=== PATIENT | female | born 1940 | race Native Hawaiian/Other Pacific Islander ===

== ENCOUNTER 2016-08-18 10:44 | Inpatient (IN) | payer MEDICARE ==
[2016-08-18 10:55] VITALS: BMI 20.9
--- NOTE | 2016-08-18 11:05 | ED PDOC ---
Arrival/HPI - General Chief Complaint: Abdominal Pain Time Seen by Provider: 08/18/16 11:04 Historian: Patient - History of Present Illness Narrative History of Present Illness (Text): 08/18/16 11:12 Christina Constantino is a 75 year old female who presents to the emergency department complaining of lower abdominal pain associated with decreased appetite since yesterday. Patient was evaluated by PMD, and was advised to present to ed to rule out appendicitis. Denies any nausea, vomiting or diarrhea. Denies fever, chills, headache, dizziness, chest pain, SOB, urinary symptoms, or any other complaints at this time. PMD: Dr. Black Time/Duration: Other (yesterday ) Symptom Onset: Gradual Symptom Course: Unchanged Severity Level: Mild Activities at Onset: Light Context: Home Past Medical History - Provider Review Nursing Documentation Reviewed: Yes - Cardiac Hx Cardiac Disorders: Yes Hx Pacemaker: No - Pulmonary Hx Respiratory Disorders: No - Neurological Hx Neurological Disorder: No Hx Paralysis: No - HEENT Hx HEENT Disorder: No - Renal Hx Renal Disorder: No - Endocrine/Metabolic Hx Endocrine Disorders: No - Hematological/Oncological Hx Blood Disorders: No Hx Blood Transfusions: No Hx Blood Transfusion Reaction: No - Integumentary Hx Dermatological Disorder: No - Musculoskeletal/Rheumatological Hx Musculoskeletal Disorders: Yes - Gastrointestinal Hx Gastrointestinal Disorders: No - Genitourinary/Gynecological Hx Genitourinary Disorders: No - Psychiatric Hx Psychophysiologic Disorder: No Hx Emotional Abuse: No Hx Physical Abuse: No Hx Substance Use: No - Anesthesia Hx Anesthesia Reactions: No Hx Malignant Hyperthermia: No - Suicidal Assessment Feels Threatened In Home Enviroment: No Family/Social History - Physician Review Nursing Documentation Reviewed: Yes Family/Social History: No Known Family HX Smoking Status: Never Smoked Hx Alcohol Use: No Hx Substance Use: No Allergies/Home Meds Allergies/Adverse Reactions: Allergies No Known Allergies Allergy (Verified 08/18/16 10:56) Home Medications: Home Meds Medication Instructions Recorded Confirmed Simvastatin [Simvastatin] 20 mg PO DAILY 08/18/16 08/18/16 Review of Systems - Physician Review All systems were reviewed & negative as marked: Yes - Review of Systems Constitutional: Normal. absent: Fatigue, Fevers Respiratory: Normal. absent: SOB, Cough Cardiovascular: Normal. absent: Chest Pain Gastrointestinal: Abdominal Pain (lower abdominal pain ). absent: Diarrhea, Nausea, Vomiting Genitourinary Female: Normal. absent: Dysuria Neurological: Normal. absent: Headache, Dizziness Psychiatric: Normal Physical Exam - Physical Exam Narrative Physical Exam (Text): Constitutional: No acute distress. Head: Normocephalic. Atraumatic. Eyes: PERRL. ENT: Moist mucous membranes. Neck: Supple. Cardiovascular: Regular rate. Chest: No tenderness. Respiratory: Clear to auscultation bilaterally. GI: Soft. Nondistended. Diffuse abdominal tenderness including the RLQ Back: No CVA tenderness. Musculoskeletal: No tenderness or swelling of extremities. Skin: No rash. Neurologic: Alert, no focal deficit. Vital Signs Reviewed: Yes Vital Signs Temp Pulse Resp BP Pulse Ox 08/18/16 10:56 98.6 F 79 16 148/76 99 Temperature: Afebrile Blood Pressure: Normal Pulse: Regular Respiratory Rate: Normal Appearance: Positive for: Well-Appearing, Non-Toxic, Comfortable Pain Distress: None Mental Status: Positive for: Alert and Oriented X 3 Medical Decision Making ED Course and Treatment: 08/18/16 11:24 Impression: A 75 year old female sent in by PMD to r/o appendicitis. Differential Diagnosis included but are not limited to: abdominal pain: r/o appendicitis. Plan: -- CT abdomen pelvis -- Labs -- Urinalysis -- Reassess and disposition Progress Notes: 08/18/16 11:24 Offered pain medication, but patient denies. Will place patient on EDObs for abdominal pain. - Lab Interpretations Lab Results: 08/18/16 11:20 08/18/16 11:20 Lab Results 08/18/16 11:20: WBC 13.9 H D, RBC 4.19, Hgb 12.8, Hct 37.9, MCV 90.5, MCH 30.5, MCHC 33.8, RDW 12.8, Plt Count 257, MPV 9.8, Gran % 91.0 H, Lymph % (Auto) 7.3 L , Zavala % (Auto) 1.6, Eos % (Auto) 0.0 L, Baso % (Auto) 0.1, Gran # 12.67 H, Lymph # 1.0 L, Zavala # 0.2, Eos # 0.0, Baso # 0.01, Sodium 135, Potassium 4.1, Chloride 98, Carbon Dioxide 27, Anion Gap 14, BUN 12, Creatinine 0.6, Est GFR ( Amer) > 60, Est GFR (Non-Af Amer) > 60, Random Glucose 148 H, Calcium 9.1, Total Bilirubin 0.8, AST 30, ALT 19, Alkaline Phosphatase 64, Total Protein 8.1, Albumin 4.4, Globulin 3.7, Albumin/Globulin Ratio 1.2, Lipase 37 - RAD Interpretation Radiology Orders: 08/18/16 11:07 ABD PELVIS PO & IV CONTRAST [CT] Stat - Medication Orders Current Medication Orders: Acetaminophen (Tylenol 325mg Tab) 650 mg PO Q6H PRN PRN Reason: Fever >100.4 F Hydromorphone HCl (Dilaudid) 0.5 mg IVP Q4H PRN PRN Reason: Pain, moderate (4-7) Sodium Chloride (Sodium Chloride 0.9%) 1,000 mls @ 100 mls/hr IV .Q10H GLO Ceftriaxone Sodium (Rocephin 1 Gram Ivpb) 100 mls @ 100 mls/hr IVPB DAILY GLO PRN Reason: Protocol Metronidazole (Flagyl) 100 mls @ 100 mls/hr IVPB Q8 GLO PRN Reason: Protocol Ondansetron HCl (Zofran Inj) 4 mg IVP Q4 PRN PRN Reason: Nausea/Vomiting Discontinued Medications Piperacillin Sod/Tazobactam Sod (Zosyn 4.5 Gm In Ns 100ml) 100 mls @ 200 mls/ hr IVPB STAT STA PRN Reason: Protocol Stop: 08/18/16 14:18 Last Admin: 08/18/16 16:42 Dose: 200 MLS/HR eMAR Start Stop Document 08/18/16 16:42 EQ (Rec: 08/18/16 16:42 EQ [facility] [id number][place] Intravenous Solution Start Date 08/18/16 Start Time 16:42 Iohexol (Omnipaque 240 (50 Ml)) Confirm Administered Dose 50 ml .ROUTE .STK-MED ONE Stop: 08/18/16 11:13 Iohexol (Omnipaque 350 100 Ml) Confirm Administered Dose 350 mg .ROUTE .STK-MED ONE Stop: 08/18/16 11:55 Ondansetron HCl (Zofran Inj) 4 mg IVP STAT STA Stop: 08/18/16 11:42 Last Admin: 08/18/16 11:42 Dose: 4 MG IVP Administration Document 08/18/16 11:42 EQ (Rec: 08/18/16 11:56 EQ [facility] [id number]) Charges for Administration # of IVP Administrations 1 Ondansetron HCl (Zofran Inj) Confirm Administered Dose 4 mg .ROUTE .STK-MED ONE Stop: 08/18/16 11:44 Last Admin: 08/18/16 16:37 Dose: ED OBSERVATION Date of observation admission: 08/18/16 Time of observation admission: 11:26 - Observation admission statement Patient is being placed in observation because:: abdominal pain - Goals of Observation Goals of observation are:: Pending labs, CT scan, and reevaluation. - Progress Note Progress Note: 08/18/16 13:57 PROCEDURE: CT Abdomen and Pelvis with contrast FINDINGS: LOWER THORAX: Unremarkable. LIVER: Diffuse fatty liver infiltration. No gross lesion or ductal dilatation. GALLBLADDER AND BILE DUCTS: Unremarkable. PANCREAS: Unremarkable. No gross lesion or ductal dilatation. SPLEEN: Unremarkable. ADRENALS: Unremarkable. No mass. KIDNEYS AND URETERS: No hydronephrosis a few small bilateral hypodense renal lesions too small to accurately characterize are noted. A left renal midpole exophytic 2.3 cm evidence benign renal cyst is suggested VASCULATURE: Atherosclerotic vascular calcifications No aortic aneurysm. Para BOWEL: Small-bowel mild ileus APPENDIX: Dilated appendix with minimal contrast or appendicolith within it. No gross rupture or periappendiceal abscess suggested. Findings suggest acute appendicitis PERITONEUM: Unremarkable. No free fluid. No free air. LYMPH NODES: Unremarkable. No enlarged lymph nodes. BLADDER: Unremarkable. REPRODUCTIVE: The uterus is slightly tip toward the right. There is a minimal prominence to the right ovary -even at this stage a physiologic right follicular cyst is possible. BONES: No acute fracture. OTHER FINDINGS: None. IMPRESSION: Findings consistent with an acute appendicitis. No kianna rupture or periappendiceal abscess Case discussed with who accepts patient under her service for appendicitis. Will start patient on Zosyn. Called Dr. Sanchez for surgical consult, who accepts for consult. chaplain resident notified. - Scribe Statement The provider has reviewed the documentation as recorded by the Dimitrios Luna Provider Attestation: All medical record entries made by the Scribe were at my direction and personally dictated by me. I have reviewed the chart and agree that the record accurately reflects my personal performance of the history, physical exam, medical decision making, and the department course for this patient. I have also personally directed, reviewed, and agree with the discharge instructions and disposition. Disposition/Present on Arrival - Present on Arrival Any Indicators Present on Arrival: No History of DVT/PE: No History of Uncontrolled Diabetes: No Urinary Catheter: No History of Decub. Ulcer: No History Surgical Site Infection Following: None - Disposition Have Diagnosis and Disposition been Completed?: Yes Diagnosis: Acute appendicitis Disposition: HOSPITALIZED Disposition Time: 15:16 Patient Plan: Admission Condition: FAIR
[2016-08-18] MEDS ORDERED: Iohexol 240 (50 ml) ONE (11:12)
[2016-08-18 11:31] LABS: BASO # 0.01 [, K/mm3] (0.0-2.0); BASO % 0.1 % (0.0-3.0); GRAN # 12.67 (1.4-6.5); HEMATOCRIT 37.9 % (36.0-48.0); LYMPH % 7.3 % (22.0-35.0); MEAN CELL VOLUME 90.5 fL (80.0-105.0); MEAN CORPUSCULAR HEMOGLOBIN 30.5 pg (25.0-35.0); MEAN CORPUSCULAR HGB CONC 33.8 g/dl (31.0-37.0); MEAN PLATELET VOLUME 9.8 fl (7.0-11.0); MONO # 0.2 (0.1-0.6); MONO % 1.6 % (1.0-6.0); PLATELET COUNT 257 [, 10^3/uL] (120.0-450.0); RED CELL DISTRIBUTION WIDTH 12.8 % (11.5-14.5); WHITE BLOOD COUNT 13.9 [, 10^3/ul] (4.5-11.0)
[2016-08-18 11:38] LABS: ADD MANUAL DIFF? NO
[2016-08-18 11:40] LABS: ALB/GLOB RATIO 1.2 (1.1-1.8); ALKALINE PHOSPHATASE 64 U/L (38-133); ALT/SGPT 19 U/L (7-56); AST/SGOT 30 U/L (15-39); BILIRUBIN,TOTAL 0.8 mg/dL (0.2-1.3); BLOOD UREA NITROGEN 12 mg/dL (7-21); CALCIUM 9.1 mg/dL (8.4-10.5); CARBON DIOXIDE 27 mmol/L (21-33); CHLORIDE 98 mmol/L (98-107); GFR AFRICAN-AMERICAN > 60; GLUCOSE,RANDOM 148 mg/dL (70-110); LIPASE 37 U/L (23-300); POTASSIUM 4.1 mmol/L (3.6-5.0); SODIUM 135 mmol/L (132-148); TOTAL PROTEIN 8.1 g/dL (5.8-8.3)
[2016-08-18] MEDS ORDERED: Iohexol 350 MG/100 ML VIAL ONE (11:54)
--- NOTE | 2016-08-18 13:47 | CT ---
PROCEDURE: CT Abdomen and Pelvis with contrast HISTORY: abd pain, r/o appendicitis COMPARISON: None. TECHNIQUE: Contrast dose: Omnipaque 240 (4 cups) and Omnipaque 351 100 mL Radiation dose: Total exam DLP = 208 mGy-cm. FINDINGS: LOWER THORAX: Unremarkable. LIVER: Diffuse fatty liver infiltration. No gross lesion or ductal dilatation. GALLBLADDER AND BILE DUCTS: Unremarkable. PANCREAS: Unremarkable. No gross lesion or ductal dilatation. SPLEEN: Unremarkable. ADRENALS: Unremarkable. No mass. KIDNEYS AND URETERS: No hydronephrosis a few small bilateral hypodense renal lesions too small to accurately characterize are noted. A left renal midpole exophytic 2.3 cm evidence benign renal cyst is suggested VASCULATURE: Atherosclerotic vascular calcifications No aortic aneurysm. Para BOWEL: Small-bowel mild ileus APPENDIX: Dilated appendix with minimal contrast or appendicolith within it. No gross rupture or periappendiceal abscess suggested. Findings suggest acute appendicitis PERITONEUM: Unremarkable. No free fluid. No free air. LYMPH NODES: Unremarkable. No enlarged lymph nodes. BLADDER: Unremarkable. REPRODUCTIVE: The uterus is slightly tip toward the right. There is a minimal prominence to the right ovary -even at this stage a physiologic right follicular cyst is possible. BONES: No acute fracture. OTHER FINDINGS: None. IMPRESSION: Findings consistent with an acute appendicitis. No kianna rupture or periappendiceal abscess
[2016-08-18] MEDS ORDERED: Piperacill/Tazo 4.5gm in NS 100 ML IVPB STA (13:49)
[2016-08-18 16:00] LABS: PH,URINE 7.5 (4.7-8.0); URINE BILIRUBIN NEGATIVE (NEGATIVE); URINE BLOOD NEGATIVE (NEGATIVE); URINE GLUCOSE (UA) NEGATIVE (NEGATIVE); URINE KETONE NEGATIVE (NEGATIVE); URINE LEUKOCYTE ESTERASE NEGATIVE Leu/uL (NEGATIVE); URINE PROTEIN NEGATIVE mg/dL (<30 mg/dL); URINE UROBILINOGEN 0.2 E.U./dL (<1 E.U./dL)
[2016-08-18 16:01] LABS: URINE APPEARANCE CLEAR (CLEAR); URINE COLOR YELLOW (YELLOW)
--- NOTE | 2016-08-18 16:06 | CP.PCM.CON ---
History of Present Illness - History of Present Illness History of Present Illness: Surgery: Dr. Vallecillo CC: Abd pain HPI: 75F w. pmh of hypercholesterolemia presents w. abd pain which started yesterday evening. Pain started in the umbilical area and was constant throughout the night. Pain was described as stabbing. Pain gradually moved to RLQ. Pt went to PMD today and was advised to go to ED to R/O appendicitis. Pt describes the pain as stabbing. She has decreased appetite and N/V which started today. She denies diarrhea. She denies F/C. CT done in ED showed dilated appendix consistent w. early acute appendicitis. Pt has no other complaints. No STEVENS/blurred vision, no CP/palpitations, no SOB/cough, no hematuria /dysuria, no weakness/fatigue. PMH: Hypercholesterolemia PSH: bunyon Meds: Simvastatin NKDA Social: No ETOH/tobacco/drugs Fhx: non-contributory Review of Systems - Review of Systems All systems: reviewed and no additional remarkable complaints except (HPI) Past Patient History - Past Social History Smoking Status: Never Smoked - CARDIAC Hx Cardiac Disorders: Yes Hx Pacemaker: No - PULMONARY Hx Respiratory Disorders: No - NEUROLOGICAL Hx Neurological Disorder: No Hx Paralysis: No - HEENT Hx HEENT Problems: No - RENAL Hx Chronic Kidney Disease: No - ENDOCRINE/METABOLIC Hx Endocrine Disorders: No - HEMATOLOGICAL/ONCOLOGICAL Hx Blood Disorders: No Hx Blood Transfusions: No Hx Blood Transfusion Reaction: No - INTEGUMENTARY Hx Dermatological Problems: No - MUSCULOSKELETAL/RHEUMATOLOGICAL Hx Musculoskeletal Disorders: Yes - GASTROINTESTINAL Hx Gastrointestinal Disorders: No - GENITOURINARY/GYNECOLOGICAL Hx Genitourinary Disorders: No - PSYCHIATRIC Hx Psychophysiologic Disorder: No Hx Emotional Abuse: No Hx Physical Abuse: No Hx Substance Use: No - SURGICAL HISTORY Hx Surgeries: Yes (foot surgery) - ANESTHESIA Hx Anesthesia Reactions: No Hx Malignant Hyperthermia: No Meds Allergies/Adverse Reactions: Allergies Allergy/AdvReac Type Severity Reaction Status Date / Time No Known Allergies Allergy Verified 08/18/16 10:56 Physical Exam - Constitutional Appears: Non-toxic, No Acute Distress - Head Exam Head Exam: ATRAUMATIC, NORMOCEPHALIC - Eye Exam Eye Exam: EOMI. absent: Scleral icterus - ENT Exam ENT Exam: Mucous Membranes Moist - Neck Exam Neck exam: Positive for: Full Rom - Respiratory Exam Respiratory Exam: NORMAL BREATHING PATTERN. absent: Accessory Muscle Use, Rales - GI/Abdominal Exam GI & Abdominal Exam: Soft, Tenderness (RLQ). absent: Distended, Firm, Guarding , Rebound, Rigid Additional comments: +obturator, no psoas - Extremities Exam Extremities exam: Negative for: calf tenderness, pedal pulses present - Back Exam Back exam: absent: CVA tenderness (L), CVA tenderness (R) - Neurological Exam Neurological exam: Alert, Oriented x3 - Psychiatric Exam Psychiatric exam: Normal Affect, Normal Mood Results - Vital Signs Recent Vital Signs: Last Vital Signs Temp 98.6 F 08/18/16 10:56 Pulse 79 08/18/16 10:56 Resp 16 08/18/16 10:56 BP 148/76 08/18/16 10:56 Pulse Ox 99 08/18/16 10:56 - Labs Result Diagrams: 08/18/16 11:20 08/18/16 11:20 - Imaging and Cardiology CT scan - abdomen Status: Image reviewed by me, Report reviewed by me Assessment & Plan - Assessment and Plan (Free Text) Assessment: 75F w. appendicitis -will plan for OR tonight -NPO -IVF -pain meds -abx -zofran -pre-op coags, ekg, CXR -d/w attending Zemaitis PGY2
[2016-08-18] MEDS ORDERED: Sodium Chloride 0.9% 1,000 ML IV SCH (16:45)
[2016-08-18] MEDS ORDERED: HYDROmorphone 0.5 mg/0.5 ml ISec IVP PRN (16:54)
[2016-08-18 17:18] LABS: INR 0.95 (0.93-1.08)
[2016-08-18] MEDS ORDERED: Bupivacaine 0.5% Inj(30mL) ONE (17:50)
[2016-08-18] MEDS ORDERED: Propofol 10 mg/ml Inj (20 ML) ONE ×2 (18:22→18:48)
[2016-08-18] MEDS ORDERED: Morphine 2 mg/ml ISec IVP PRN (18:24)
[2016-08-18] MEDS ORDERED: Lactated Ringer's 1,000 ML IV SCH ×2 (18:30→20:00)
[2016-08-18] MEDS ORDERED: Succinylcholine 200 mg/10 ml Inj IV ONE (18:47)
[2016-08-18] MEDS ORDERED: Influenza Vaccine 45 MCG/0.5 ml IM ONE (18:48)
[2016-08-18] MEDS ORDERED: Neostigmine Methylsulfate 3mg/3ml Syringe IV ONE (18:50)
[2016-08-18] MEDS ORDERED: Desflurane Inhalation Anesthetic Liq (240 ml) ONE (18:59)
--- NOTE | 2016-08-18 19:29 | CARD ---
APPROVED REPORT EKG Measurement Heart [id number] <Conclusion> Normal sinus rhythm ST & T wave abnormality, consider anterolateral ischemia Prolonged QT Abnormal ECG
--- NOTE | 2016-08-18 19:47 | PCM.SURG1 ---
Surgeon's Initial Post Op Note - Surgeon's Notes Surgeon: Dr. Vallecillo Damage Appraiser: Savanna Angel PGY1 Type of Anesthesia: General Endo Pre-Operative Diagnosis: Acute appendicitis Operative Findings: appendicitis Post-Operative Diagnosis: Acute appendicitis Operation Performed: Lapraroscopic appendectomy Specimen/Specimens Removed: Appendix Estimated Blood Loss: EBL {In ML}: 5 Blood Products Given: N/A Drains Used: No Drains Post-Op Condition: Good Date of Surgery/Procedure: 08/18/16 Time of Surgery/Procedure: 19:47
[2016-08-18] MEDS ORDERED: Oxycodone/Acetaminophen 5/325 mg Tab PO PRN (19:50)
[2016-08-18] MEDS: metroNIDAZOLE IV 500 mg/100 ml 100 ML IVPB SCH (21:29)
--- NOTE | 2016-08-18 22:10 | HP ---
CHIEF COMPLAINT: Right abdominal pain since yesterday. HISTORY OF PRESENT ILLNESS: A 75-year-old female with a history of hyperlipidemia who presented with complaint of generalized pain, but mostly localized in the right lower quadrant of the abdomen. The patient had bloating but denies any nausea, vomiting, diarrhea. She denied any fever at home. She was running a low-grade fever in the Emergency Room. PAST MEDICAL HISTORY: She denies any hypertension, coronary artery disease. The patient has history of hyperlipidemia and she is taking currently simvastatin. PAST SURGICAL HISTORY: Bunion surgery with local anesthesia a few years ago. ALLERGIES: No known allergies. CURRENT MEDICATIONS: Simvastatin 20 mg daily. FAMILY HISTORY: Noncontributory. SOCIAL HISTORY: The patient denies any smoking, alcohol or drug use. The patient is retired. She l elan with her . The patient is independent of activities of daily living. REVIEW OF SYSTEMS: The patient complains of low grade fever for 1 day. She complains of loss of faviola etite for 1 day. She denies any weight loss. The patient denies any sore throat, nasal congestion, dysphagia. The patient denies any cough, shortness of breath. The patient denies any chest pain, he art palpitation or shortness of breath. The patient complains of right lower quadrant abdominal pain . She denies any nausea, vomiting, melena, hematemesis, diarrhea. The patient denies any dysuria, h ematuria, flank pain. The patient denies any joint pains or low back pain. The patient denies any h eadache, blurry vision or any sensory or motor deficit, tremor. The patient denies any psychiatric s ymptoms. PHYSICAL EXAMINATION: VITAL SIGNS: Stable. Temperature in Emergency Room was 98.6, pulse 79, blood pressure 148/76, respi ratory rate 16, oxygen saturation 99% on room air. GENERAL: She is comfortable in bed, alert, awake, oriented. HEENT: Head is normocephalic, atraumatic. Eyes: Pupils reactive to light. No jaundice. Oral muco sa is dry. Tongue is coated. NECK: Supple. No neck masses. No JVD. LUNGS: Clear to auscultation. HEART: Regular rhythm and rate. ABDOMEN: Soft, but tenderness in the right lower quadrant with no rebound, with some muscle guarding in that area. Bowel sounds are positive. EXTREMITIES: With no edema. DIAGNOSTIC TESTS: Significant for elevated WBC 13.9, hemoglobin 12.8, hematocrit 37.9 and platelet c ount 257. Chemistry was normal. Random glucose 148. Her BUN was 12, creatinine 0.6. Urinalysis wa s normal. Chest x-ray was negative for any infiltration. CT of the abdomen was significant for diff use fatty infiltration and a dilated appendix suggestive of an acute appendicitis. EKG showed normal sinus rhythm, some ST abnormalities in V3-V5. ASSESSMENT: 1. A 75-year-old female with new onset of right lower quadrant abdominal pain. Positive CT scan for acute appendicitis. 2. Normal EKG. PLAN OF TREATMENT: The patient was evaluated by surgeon. The patient is planned for a laparoscopic appendectomy this evening. We will continue IV fluids, IV antibiotic dose started in Emergency Room. The patient is hemodynamically stable. There is no immediate contraindications for surgery at prese nt time. Yomaira Paul MD cc: [id number] TT: 08/18/2016 22:09:59 rachael
[2016-08-19] MEDS: metroNIDAZOLE IV 500 mg/100 ml 100 ML IVPB SCH ×3 (05:48→21:43)
--- NOTE | 2016-08-19 07:37 | OP ---
PROCEDURE DATE: 08/18/2016 PREOPERATIVE DIAGNOSIS: Acute appendicitis. POSTOPERATIVE DIAGNOSIS: Acute perforated appendicitis. PROCEDURE PERFORMED: Laparoscopic appendectomy. SURGEON: Dr. Vallecillo. PROCESSOR SOLID PROPELLANT: Dr. Savanna Angel. ANESTHESIOLOGIST: Dr. Angel. ANESTHESIA: General endotracheal anesthesia. ESTIMATED BLOOD LOSS: Minimal. SPECIMEN: Acutely inflamed appendix perforation. INDICATION: The patient is a 75-year-old female who was admitted through the Emergency Room after be ing seen by the primary physician with complaints of right lower quadrant pain for 24 hours. The pat ient was noted on admission that she had an elevated white count of 14,000 and had a tenderness in th e right lower quadrant. The patient had a CT scan of abdomen and pelvis showing presence of an infla med appendix with thickening of the appendiceal wall. The patient was scheduled for emergency surger y. DESCRIPTION OF PROCEDURE: The patient was brought to the operating room and placed on the operating table in supine position. The patient was connected to EKG, blood pressure and pulse oximeter monito rs. The patient then underwent general endotracheal anesthesia, was prepped and draped in usual ster ile fashion. First, a standard timeout procedure took place and everybody in the room agreed as to the patient's i dentity, diagnosis and procedure to be performed. Using 2 towel clips, the anterior abdominal wall was elevated and a Veress needle was inserted throug h the small incision superior to the umbilicus. Once this was done and pneumoperitoneum was obtained , a 12 mm trocar was inserted through that incision and careful evaluation of abdominal cavity reveal ed the presence of a slightly distended bowel and omentum covering the right lower quadrant. I then proceeded with placing a long grasper through the operative scope and proceeded with removal of the o mentum from the area of the right lower quadrant. The patient was placed in a Trendelenburg and the left side down position. That allowed exposure of the cecum and visualization of the inflamed append ix. I then proceeded with placing a second 12 mm trocar in the suprapubic position under direct visu alization. Once this was in place, I then switched the camera to the suprapubic port and proceeded w ith grabbing the tip of the appendix and transected the mesoappendix using the Harmonic scalpel. Onc e the mesoappendix was dissected out all the way to the base of the appendix and the base of the appe ndix was clearly visualized, it was then transected using Endo-ROHIT stapler. Once this was done, the appendix was freed. It was placed in the EndoCatch bag and removed through the periumbilical incisio n. The abdominal cavity was then copiously irrigated with antibiotic-containing saline and all the i rrigant fluid was suctioned out. There was excellent hemostasis noted. The pneumoperitoneum was now released, trocars removed and the wounds closed using 0 Vicryl for the fascia, 3-0 Vicryl for subcut aneous tissue and 4-0 Monocryl for skin. A sterile Dermabond dressing was applied to the wound. The patient tolerated the procedure well and there were no complications. The patient was awakened and transferred to recovery room for further observation. Brandyn Vallecillo MD cc: [id number] TT: 08/19/2016 07:36:42 nd
[2016-08-19 07:55] LABS: ADD MANUAL DIFF? NO
[2016-08-19 08:01] LABS: BASO # 0.01 [, K/mm3] (0.0-2.0); BASO % 0.1 % (0.0-3.0); GRAN # 9.69 (1.4-6.5); GRAN % 81.1 % (50.0-68.0); HEMATOCRIT 32.6 % (36.0-48.0); LYMPH # 1.7 (1.2-3.4); LYMPH % 13.8 % (22.0-35.0); MEAN CELL VOLUME 89.8 fL (80.0-105.0); MEAN CORPUSCULAR HEMOGLOBIN 29.8 pg (25.0-35.0); MEAN CORPUSCULAR HGB CONC 33.1 g/dl (31.0-37.0); MEAN PLATELET VOLUME 9.8 fl (7.0-11.0); MONO # 0.6 (0.1-0.6); PLATELET COUNT 222 [, 10^3/uL] (120.0-450.0); RED CELL DISTRIBUTION WIDTH 13.2 % (11.5-14.5)
--- NOTE | 2016-08-19 08:11 | RAD ---
HISTORY: pre-op COMPARISON: No prior. FINDINGS: LUNGS: No active pulmonary disease. PLEURA: No significant pleural effusion identified, no pneumothorax apparent. CARDIOVASCULAR: Normal. OSSEOUS STRUCTURES: No significant abnormalities. VISUALIZED UPPER ABDOMEN: Normal. OTHER FINDINGS: None. IMPRESSION: No active disease.
[2016-08-19 08:35] LABS: ALB/GLOB RATIO 1.1 (1.1-1.8); ALKALINE PHOSPHATASE 51 U/L (38-133); ALT/SGPT 25 U/L (7-56); AST/SGOT 30 U/L (15-39); BILIRUBIN,TOTAL 0.7 mg/dL (0.2-1.3); BLOOD UREA NITROGEN 13 mg/dL (7-21); CARBON DIOXIDE 27 mmol/L (21-33); CHLORIDE 101 mmol/L (98-107); GFR AFRICAN-AMERICAN > 60; GLUCOSE,RANDOM 131 mg/dL (70-110); POTASSIUM 3.1 mmol/L (3.6-5.0); SODIUM 136 mmol/L (132-148); TOTAL PROTEIN 6.2 g/dL (5.8-8.3)
[2016-08-19] MEDS: cefTRIAXone 1 gm 100 ML IVPB SCH (09:08)
[2016-08-19] MEDS: Potassium Chloride 10 mEq ER Tab PO SCH (09:53)
--- NOTE | 2016-08-19 10:02 | DS ---
The patient was seen at bedside this morning. She was admitted for acute appendicitis. She underwent laparoscopic appendectomy last night. The patient is feeling much better. The patient is tolerating regular diet. She denies any nausea, vomiting, or abdominal pain. She feels slightly bloated this morning. The patient is urinating normally. PHYSICAL EXAMINATION: VITAL SIGNS: Stable. The patient is afebrile. Temperature 97.7. Her pulse is 91, blood pressure 108/54, and respiratory rate 20. GENERAL: She looks comfortable, awake, alert, awake, oriented. HEENT: Head is normocephalic, atraumatic. Her oral mucosa is moist. NECK: Supple. LUNGS: Clear to auscultation. HEART: Regular rhythm and rate. ABDOMEN: Slightly distended. There is some tenderness around the surgical site. Bowel sounds are positive. EXTREMITIES: With no edema. DIAGNOSTIC TESTS: This morning, CBC with WBC 12, hemoglobin 10.8, hematocrit 32.6, and platelet count 222,000. Her electrolytes are significant for low potassium 3.1. Sodium is normal, and chloride is normal. Her renal and liver enzymes are normal. ASSESSMENT: 1. History of acute appendicitis, status post laparoscopic appendectomy. 2. Hypokalemia. 3. Hyperlipidemia. PLAN OF TREATMENT: We will monitor the patient for the next few hours. We will replace potassium with 30 mEq of KCl p.o. The patient will be discharged home this afternoon if stable and cleared by surgery. We will continue her chronic medication simvastatin 20 mg, and will have pain medication. The patient was advised to see primary care doctor next week and a surgeon in 2 weeks. Yomaira Paul MD cc: [id number] TT: 08/19/2016 10:02:00 travis CURIEL
--- NOTE | 2016-08-19 11:28 | CP.PCM.PN ---
Subjective - Date & Time of Evaluation Date of Evaluation: 08/19/16 Time of Evaluation: 11:21 - Subjective Subjective: Surgery: Dr. Vallecillo Pt seen and examined. Resting comfortably in bed. Pain controlled. No F/C. No N/ V. Ambulating w. out difficulty. Objective - Vital Signs/Intake and Output Vital Signs (last 24 hours): Temp Pulse Resp BP Pulse Ox 97.7 F 102 H 20 108/54 L 97 08/19/16 09:04 08/19/16 09:04 08/19/16 09:04 08/19/16 09:04 08/19/16 09:04 Intake and Output: 08/19/16 08/19/16 06:59 18:59 Intake Total 1360 Balance 1360 - Medications Medications: Current Medications Acetaminophen (Tylenol 325mg Tab) 650 mg PO Q6H PRN PRN Reason: Fever >100.4 F Hydromorphone HCl (Dilaudid) 0.5 mg IVP Q4H PRN PRN Reason: Pain, moderate (4-7) Ceftriaxone Sodium (Rocephin 1 Gram Ivpb) 100 mls @ 100 mls/hr IVPB DAILY GLO PRN Reason: Protocol Last Admin: 08/19/16 09:08 Dose: 100 mls/hr Metronidazole (Flagyl) 100 mls @ 100 mls/hr IVPB Q8 GLO PRN Reason: Protocol Last Admin: 08/19/16 05:48 Dose: 100 mls/hr Lactated Ringer's (Lactated Ringer's) 1,000 mls @ 100 mls/hr IV .Q10H [facility] Ondansetron HCl (Zofran Inj) 4 mg IVP Q4 PRN PRN Reason: Nausea/Vomiting Oxycodone/Acetaminophen (Percocet 5/325 Mg Tab) 2 tab PO Q4H PRN PRN Reason: Pain, moderate (4-7) Stop: 08/21/16 19:51 Potassium Chloride (Klor-Con 10) 30 meq PO BRK [facility] Last Admin: 08/19/16 09:53 Dose: 30 meq - Labs Labs: 08/19/16 07:40 08/19/16 07:40 PT 10.3 Seconds (9.9-11.8) 08/18/16 14:45 INR 0.95 (0.93-1.08) 08/18/16 14:45 APTT 29.0 Seconds (23.7-30.8) 08/18/16 14:45 - Constitutional Appears: Non-toxic, No Acute Distress - Head Exam Head Exam: ATRAUMATIC, NORMOCEPHALIC - Eye Exam Eye Exam: EOMI. absent: Scleral icterus - ENT Exam ENT Exam: Mucous Membranes Moist - Neck Exam Neck Exam: Full ROM - Respiratory Exam Respiratory Exam: NORMAL BREATHING PATTERN. absent: Accessory Muscle Use, Respiratory Distress - GI/Abdominal Exam GI & Abdominal Exam: Soft. absent: Distended, Firm, Guarding, Rigid, Tenderness , Rebound Additional comments: incision C/D/I - Extremities Exam Extremities Exam: absent: Calf Tenderness, Pedal Edema - Neurological Exam Neurological Exam: Alert, Awake, Oriented x3 - Psychiatric Exam Psychiatric exam: Normal Affect, Normal Mood Assessment and Plan - Assessment and Plan (Free Text) Assessment: 75F w. perforated appendix, s/p lap appy POD#1 -regular diet -pain control -c/w IV abx for 24hrs -plan to D/C tomorrow w. Keflex 500mg TID for 5 days -encourage ambulation and IS use -d/w attending Zemaitis PGY2
[2016-08-19] MEDS ORDERED: Oxycodone/Acetaminophen 5/325 mg Tab PO PRN (11:30)
[2016-08-20] MEDS: metroNIDAZOLE IV 500 mg/100 ml 100 ML IVPB SCH ×3 (06:23→21:57)
[2016-08-20 07:23] LABS: ADD MANUAL DIFF? NO
[2016-08-20 07:26] LABS: BASO # 0.01 [, K/mm3] (0.0-2.0); BASO % 0.1 % (0.0-3.0); EOS % 0.1 % (1.5-5.0); GRAN # 15.31 (1.4-6.5); GRAN % 90.9 % (50.0-68.0); HEMATOCRIT 36.1 % (36.0-48.0); LYMPH # 0.8 (1.2-3.4); LYMPH % 4.5 % (22.0-35.0); MEAN CORPUSCULAR HEMOGLOBIN 29.9 pg (25.0-35.0); MEAN CORPUSCULAR HGB CONC 33.2 g/dl (31.0-37.0); MEAN PLATELET VOLUME 9.9 fl (7.0-11.0); MONO # 0.7 (0.1-0.6); MONO % 4.4 % (1.0-6.0); PLATELET COUNT 234 [, 10^3/uL] (120.0-450.0); RED CELL DISTRIBUTION WIDTH 13.4 % (11.5-14.5); WHITE BLOOD COUNT 16.8 [, 10^3/ul] (4.5-11.0)
--- NOTE | 2016-08-20 07:54 | CP.PCM.PN ---
Subjective - Date & Time of Evaluation Date of Evaluation: 08/20/16 Time of Evaluation: 06:40 - Subjective Subjective: Pt seen and evaluated at bedside. Denies F/C/N/V. Reports lessening abdominal pain. Reports eating. Overnight had low grade fever, and multiple episodes of diarrhea. Objective - Vital Signs/Intake and Output Vital Signs (last 24 hours): Temp Pulse Resp BP Pulse Ox 100.4 F H 119 H 20 137/74 96 08/19/16 16:00 08/19/16 16:00 08/19/16 16:00 08/19/16 16:00 08/19/16 16:00 Intake and Output: 08/20/16 08/20/16 06:59 18:59 Intake Total 420 480 Balance 420 480 - Medications Medications: Current Medications Acetaminophen (Tylenol 325mg Tab) 650 mg PO Q6H PRN PRN Reason: Fever >100.4 F Ceftriaxone Sodium (Rocephin 1 Gram Ivpb) 100 mls @ 100 mls/hr IVPB DAILY GLO PRN Reason: Protocol Last Admin: 08/19/16 09:08 Dose: 100 mls/hr Metronidazole (Flagyl) 100 mls @ 100 mls/hr IVPB Q8 GLO PRN Reason: Protocol Last Admin: 08/20/16 06:23 Dose: 100 mls/hr Ondansetron HCl (Zofran Inj) 4 mg IVP Q4 PRN PRN Reason: Nausea/Vomiting Oxycodone/Acetaminophen (Percocet 5/325 Mg Tab) 1 tab PO Q6 PRN PRN Reason: Pain, moderate (4-7) Stop: 08/22/16 12:01 Potassium Chloride (Klor-Con 10) 30 meq PO [facility]K [facility] Last Admin: 08/19/16 09:53 Dose: 30 meq - Labs Labs: 08/20/16 07:00 08/19/16 07:40 PT 10.3 Seconds (9.9-11.8) 08/18/16 14:45 INR 0.95 (0.93-1.08) 08/18/16 14:45 APTT 29.0 Seconds (23.7-30.8) 08/18/16 14:45 - Additional Findings Additional findings: - Constitutional Appears: Non-toxic, No Acute Distress - Head Exam Head Exam: ATRAUMATIC, NORMOCEPHALIC - Eye Exam Eye Exam: EOMI. absent: Scleral icterus - ENT Exam ENT Exam: Mucous Membranes Moist - Neck Exam Neck Exam: Full ROM - Respiratory Exam Respiratory Exam: NORMAL BREATHING PATTERN. absent: Accessory Muscle Use, Respiratory Distress - GI/Abdominal Exam GI & Abdominal Exam: Soft. absent: Distended, Firm, Guarding, Rigid, Tenderness , Rebound Additional comments: incision C/D/I - Extremities Exam Extremities Exam: absent: Calf Tenderness, Pedal Edema - Neurological Exam Neurological Exam: Alert, Awake, Oriented x3 - Psychiatric Exam Psychiatric exam: Normal Affect, Normal Mood Assessment and Plan - Assessment and Plan (Free Text) Plan: 75F w. perforated appendix, s/p lap appy POD#2 -wbc 16.8, low grade fever last PM. -trend fever, WBC monitor -regular diet -pain control -c/w IV abx -Further Recs as per attending Melanie Angel PGY1
[2016-08-20 08:22] LABS: ALB/GLOB RATIO 1.1 (1.1-1.8); ALKALINE PHOSPHATASE 82 U/L (38-133); ALT/SGPT 14 U/L (7-56); AST/SGOT 32 U/L (15-39); BILIRUBIN,TOTAL 0.7 mg/dL (0.2-1.3); BLOOD UREA NITROGEN 20 mg/dL (7-21); CALCIUM 9.2 mg/dL (8.4-10.5); CARBON DIOXIDE 24 mmol/L (21-33); CHLORIDE 100 mmol/L (98-107); GFR AFRICAN-AMERICAN > 60; GLUCOSE,RANDOM 164 mg/dL (70-110); POTASSIUM 3.4 mmol/L (3.6-5.0); SODIUM 137 mmol/L (132-148); TOTAL PROTEIN 7.5 g/dL (5.8-8.3)
[2016-08-20] MEDS: Lactated Ringer's 1,000 ML IV SCH ×2 (09:30→19:10)
[2016-08-20] MEDS: Potassium Chloride 10 mEq ER Tab PO SCH (09:30)
[2016-08-20] MEDS: cefTRIAXone 1 gm 100 ML IVPB SCH (09:30)
--- NOTE | 2016-08-20 10:48 | PN ---
DATE: 08/20/2016 The patient was seen at bedside this morning. The patient is complaining of episodes of diarrhea since last night. She had low-grade fever last night. She is feeling better with her abdominal distention. She is tolerating diet. PHYSICAL EXAMINATION: VITALS: Temperature 98.5 this morning, pulse 100, blood pressure 128/77, respiratory rate 20. The patient is alert, awake, oriented. HEAD: Normocephalic, atraumatic. Oral mucosa is moist. NECK: Supple. LUNGS: Clear to auscultation. ABDOMEN: Slightly distended. No significant tenderness or muscle guarding. Bowel sounds are positive. EXTREMITIES: With no edema. Her diagnostic tests this morning are significant for a leukocytosis with WBC 16 ,000, her hemoglobin is 12, hematocrit 36.1. Chemistry stable. Potassium improved, but still subtherapeutic at 3.4. Her renal function is normal. Stool for cultures and C. diff was sent and is still pending. ASSESSMENT: 1. Status post appendectomy due to acute appendicitis. 2. Diarrhea. 3. Hypokalemia. PLAN OF TREATMENT: Case was discussed yesterday with surgeon. Advised to keep in observation for another day and continue with IV antibiotics. Will discuss plans of treatment. Will maintain on current antibiotics, follow up stool culture. Will replace potassium. Monitor closely. Yomaira Paul MD cc: [id number] TT: 08/20/2016 10:47:16 Confirmation # [id number] Dictation # [id number] travis CURIEL
[2016-08-20 17:00] VITALS: RESP 20
[2016-08-21] MEDS: Lactated Ringer's 1,000 ML IV SCH ×2 (04:30→11:59)
[2016-08-21] MEDS: metroNIDAZOLE IV 500 mg/100 ml 100 ML IVPB SCH ×3 (06:18→21:28)
[2016-08-21 07:16] LABS: HEMATOCRIT 34.6 % (36.0-48.0); MEAN CELL VOLUME 90.1 fL (80.0-105.0); MEAN CORPUSCULAR HEMOGLOBIN 29.4 pg (25.0-35.0); MEAN CORPUSCULAR HGB CONC 32.7 g/dl (31.0-37.0); MEAN PLATELET VOLUME 9.9 fl (7.0-11.0); RED CELL DISTRIBUTION WIDTH 13.4 % (11.5-14.5); WHITE BLOOD COUNT 14.1 [, 10^3/ul] (4.5-11.0)
[2016-08-21 07:44] LABS: ALB/GLOB RATIO 0.9 (1.1-1.8); ALKALINE PHOSPHATASE 84 U/L (38-133); ALT/SGPT 12 U/L (7-56); AST/SGOT 27 U/L (15-39); BILIRUBIN,TOTAL 0.6 mg/dL (0.2-1.3); BLOOD UREA NITROGEN 17 mg/dL (7-21); CALCIUM 8.6 mg/dL (8.4-10.5); CARBON DIOXIDE 24 mmol/L (21-33); CHLORIDE 101 mmol/L (98-107); GFR AFRICAN-AMERICAN > 60; GLUCOSE,RANDOM 145 mg/dL (70-110); POTASSIUM 3.3 mmol/L (3.6-5.0); SODIUM 135 mmol/L (132-148)
[2016-08-21] MEDS ORDERED: Potassium Chloride 20 mEq ER Tab PO ONE (08:08)
[2016-08-21] MEDS: Potassium Chloride 10 mEq ER Tab PO SCH (08:45)
[2016-08-21] MEDS: cefTRIAXone 1 gm 100 ML IVPB SCH (09:40)
--- NOTE | 2016-08-21 11:59 | PN ---
DATE: 08/21/2016 The patient has history of acute appendicitis. She had appendectomy 3 days ago. She is feeling much better. She continues with some abdominal distention and diarrhea. Her diarrhea is getting better. Her appetite is fair. PHYSICAL EXAMINATION: VITAL SIGNS: Stable. The patient is afebrile. Temperature 98.2, her pulse is 91 and regular, blood pressure 148/82, respiratory rate 20. GENERAL: The patient is comfortable, sitting in a chair, alert, awake, oriented. HEENT: Head is normocephalic, atraumatic. Oral mucosa is moist. NECK: Supple. LUNGS: Clear to auscultation. HEART: With regular rhythm and rate. ABDOMEN: Mildly distended. There is some tenderness on deep palpation of the right lower quadrant. Her bowel sounds are diminished. EXTREMITIES: With no edema. DIAGNOSTIC TESTS: Significant for elevated WBC 14.1, trending down since yesterday, hemoglobin is stable 11.3, hematocrit 34.6. Her chemistry is significant for borderline low potassium 3.3, sodium is normal. Renal function is normal with BUN 17 and creatinine 0.7. ASSESSMENT: 1. Status post appendectomy, day 3. 2. History of acute appendicitis with perforated appendix. 3. Diarrhea, improving. 4. Hypokalemia. PLAN OF TREATMENT: Case was discussed with surgeon. We will continue regular diet. Monitor diarrhea and electrolytes. The patient will be maintained on antibiotics, metronidazole and Rocephin. Yomaira Paul MD cc: [id number] TT: 08/21/2016 11:58:32 Confirmation # [id number] Dictation # [id number] tom CURIEL
--- NOTE | 2016-08-21 12:08 | CP.PCM.PN ---
Subjective - Date & Time of Evaluation Date of Evaluation: 08/21/16 Time of Evaluation: 12:05 - Subjective Subjective: SURGERY NOTE FOR DR. CEJA 75F seen and examined at bedside. Patient feels much better. Tolerating diet, and having more formed bowel movements. Objective - Vital Signs/Intake and Output Vital Signs (last 24 hours): Temp Pulse Resp BP Pulse Ox 98.2 F 91 H 20 148/82 99 08/21/16 08:42 08/21/16 08:42 08/21/16 08:42 08/21/16 08:42 08/21/16 08:42 Intake and Output: 08/21/16 08/21/16 06:59 18:59 Intake Total 120 Output Total 400 500 Balance -400 -380 - Medications Medications: Current Medications Acetaminophen (Tylenol 325mg Tab) 650 mg PO Q6H PRN PRN Reason: Fever >100.4 F Ceftriaxone Sodium (Rocephin 1 Gram Ivpb) 100 mls @ 100 mls/hr IVPB DAILY GLO PRN Reason: Protocol Last Admin: 08/21/16 09:40 Dose: 100 mls/hr Metronidazole (Flagyl) 100 mls @ 100 mls/hr IVPB Q8 GLO PRN Reason: Protocol Last Admin: 08/21/16 06:18 Dose: 100 mls/hr Lactated Ringer's (Lactated Ringer's) 1,000 mls @ 50 mls/hr IV .Q20H [facility] Last Admin: 08/21/16 11:59 Dose: 50 mls/hr Ondansetron HCl (Zofran Inj) 4 mg IVP Q4 PRN PRN Reason: Nausea/Vomiting Oxycodone/Acetaminophen (Percocet 5/325 Mg Tab) 1 tab PO Q6 PRN PRN Reason: Pain, moderate (4-7) Stop: 08/22/16 12:01 Potassium Chloride (Klor-Con 10) 30 meq PO BRK [facility] Last Admin: 08/21/16 08:45 Dose: 30 meq - Labs Labs: 08/21/16 06:40 08/21/16 06:40 PT 10.3 Seconds (9.9-11.8) 08/18/16 14:45 INR 0.95 (0.93-1.08) 08/18/16 14:45 APTT 29.0 Seconds (23.7-30.8) 08/18/16 14:45 - Constitutional Appears: Non-toxic, No Acute Distress - Head Exam Head Exam: ATRAUMATIC - Respiratory Exam Respiratory Exam: Clear to Ausculation Bilateral, NORMAL BREATHING PATTERN - Cardiovascular Exam Cardiovascular Exam: REGULAR RHYTHM, +S1, +S2 - GI/Abdominal Exam GI & Abdominal Exam: Soft, Tenderness. absent: Distended, Firm, Guarding, Rigid , Rebound Additional comments: incision site is CDI - Neurological Exam Neurological Exam: Alert, Awake - Skin Skin Exam: Dry, Intact, Normal Color, Warm Assessment and Plan - Assessment and Plan (Free Text) Assessment: 75F s/p lap appendectomy POD5 wit perforated appendix Plan: - monitor vitals/Labs - Clear tomorrow if patient continues doing well - continue antibiotics at home Discussed with Dr. Ruth Ann Harris, PGY1
[2016-08-22] MEDS: metroNIDAZOLE IV 500 mg/100 ml 100 ML IVPB SCH (05:26)
--- NOTE | 2016-08-22 06:08 | CP.PCM.PN ---
Subjective - Date & Time of Evaluation Date of Evaluation: 08/22/16 Time of Evaluation: 06:05 - Subjective Subjective: SURGERY NOTE FOR DR. CEJA 75F seen and examined at bedside. Patient states she feels well. Minimal pain, denies nausea, vomiting. Tolerating diet, passing flatus and admits to small BM. Objective - Vital Signs/Intake and Output Vital Signs (last 24 hours): Temp Pulse Resp BP Pulse Ox 98.3 F 90 20 147/75 95 08/21/16 18:04 08/21/16 18:04 08/21/16 18:04 08/21/16 18:04 08/21/16 18:04 Intake and Output: 08/21/16 08/22/16 18:59 06:59 Intake Total 1040 Output Total 500 100 Balance 540 -100 - Medications Medications: Current Medications Acetaminophen (Tylenol 325mg Tab) 650 mg PO Q6H PRN PRN Reason: Fever >100.4 F Ceftriaxone Sodium (Rocephin 1 Gram Ivpb) 100 mls @ 100 mls/hr IVPB DAILY GLO PRN Reason: Protocol Last Admin: 08/21/16 09:40 Dose: 100 mls/hr Metronidazole (Flagyl) 100 mls @ 100 mls/hr IVPB Q8 GLO PRN Reason: Protocol Last Admin: 08/22/16 05:26 Dose: 100 mls/hr Lactated Ringer's (Lactated Ringer's) 1,000 mls @ 50 mls/hr IV .Q20H [facility] Last Admin: 08/21/16 11:59 Dose: 50 mls/hr Ondansetron HCl (Zofran Inj) 4 mg IVP Q4 PRN PRN Reason: Nausea/Vomiting Oxycodone/Acetaminophen (Percocet 5/325 Mg Tab) 1 tab PO Q6 PRN PRN Reason: Pain, moderate (4-7) Stop: 08/22/16 12:01 Potassium Chloride (Klor-Con 10) 30 meq PO BRK [facility] Last Admin: 08/21/16 08:45 Dose: 30 meq - Labs Labs: 08/21/16 06:40 08/21/16 06:40 PT 10.3 Seconds (9.9-11.8) 08/18/16 14:45 INR 0.95 (0.93-1.08) 08/18/16 14:45 APTT 29.0 Seconds (23.7-30.8) 08/18/16 14:45 - Constitutional Appears: Non-toxic, No Acute Distress - Head Exam Head Exam: ATRAUMATIC - Eye Exam Eye Exam: EOMI, PERRL - Respiratory Exam Respiratory Exam: Clear to Ausculation Bilateral, NORMAL BREATHING PATTERN - Cardiovascular Exam Cardiovascular Exam: REGULAR RHYTHM, +S1, +S2 - GI/Abdominal Exam GI & Abdominal Exam: Soft, Tenderness (minimal tenderness midline, midline ecchymosis, incisions CDI). absent: Firm, Guarding, Rigid, Rebound - Neurological Exam Neurological Exam: Alert, Awake Assessment and Plan - Assessment and Plan (Free Text) Assessment: 75F s/p lap appendectomy POD6 with perforated appendix - monitor vitals/Labs - clear today from surgery standpoint - continue PO antibiotics at home. Discussed with Dr. Ruth Ann Harris, PGY1
[2016-08-22] MEDS: Lactated Ringer's 1,000 ML IV SCH (07:15)
[2016-08-22 07:29] LABS: HEMATOCRIT 30.3 % (36.0-48.0); MEAN CELL VOLUME 89.1 fL (80.0-105.0); MEAN CORPUSCULAR HGB CONC 33.7 g/dl (31.0-37.0); MEAN PLATELET VOLUME 9.6 fl (7.0-11.0); RED CELL DISTRIBUTION WIDTH 13.4 % (11.5-14.5); WHITE BLOOD COUNT 12.3 [, 10^3/ul] (4.5-11.0)
[2016-08-22 07:40] LABS: ALB/GLOB RATIO 0.9 (1.1-1.8); ALKALINE PHOSPHATASE 65 U/L (38-133); ALT/SGPT 18 U/L (7-56); AST/SGOT 29 U/L (15-39); BILIRUBIN,TOTAL 0.5 mg/dL (0.2-1.3); BLOOD UREA NITROGEN 9 mg/dL (7-21); CALCIUM 7.8 mg/dL (8.4-10.5); CARBON DIOXIDE 21 mmol/L (21-33); CHLORIDE 104 mmol/L (98-107); GFR AFRICAN-AMERICAN > 60; GLUCOSE,RANDOM 109 mg/dL (70-110); POTASSIUM 3.4 mmol/L (3.6-5.0); SODIUM 135 mmol/L (132-148); TOTAL PROTEIN 5.9 g/dL (5.8-8.3)
[2016-08-22 08:28] VITALS: BP 146/73; PULSE 92; TEMP 98.7; O2SAT 97
[2016-08-22] MEDS: cefTRIAXone 1 gm 100 ML IVPB SCH (09:19)
[2016-08-22] MEDS: Potassium Chloride 10 mEq ER Tab PO SCH (09:19)
--- NOTE | 2016-08-22 14:08 | DS ---
The patient was admitted for acute appendicitis, underwent laparoscopic appendectomy. The patient found to have perforated appendix. The patient was treated with IV Rocephin and metronidazole. She was observed for a couple of days due to elevated white count and diarrhea. She is feeling much better. She denies any abdominal pain. Her diarrhea subsided, but she still has loose stools. She is tolerating her diet. PHYSICAL EXAMINATION: On discharge showed: VITAL SIGNS: Stable. Temperature 98.7, her pulse 92, blood pressure 146/73 and respiratory rate 20. GENERAL: She is comfortable, alert, awake, oriented. HEENT: Head is normocephalic, atraumatic. Eyes with pupils reactive to light. Oral mucosa is moist. NECK: Supple. LUNGS: Clear to auscultation. HEART: With regular rhythm and rate. ABDOMEN: Soft. Slightly distended. Bowel sounds are positive. EXTREMITIES: With no edema. DIAGNOSTIC TESTS: Today, CBC with WBC 12.3, hematocrit 10.2, hemoglobin 30.3. Chemistry: Sodium 135, potassium 3.4, BUN 9, creatinine 0.6 and liver enzymes normal. ASSESSMENT: 1. Status post appendectomy, day 4. 2. History of acute appendicitis, perforated appendix. 3. Diarrhea, improved. 4. Hypokalemia. 5. Type 2 diabetes mellitus. PLAN OF TREATMENT: The patient will be discharged home today. The patient will continue oral antibiotic Levaquin 500 mg for next 5 days. She was advised to follow up with primary care doctor in 3 days. The patient also will follow up with surgeon in 2 weeks. The patient will maintain regular diet. Yomaira Paul MD cc: [id number] TT: 08/22/2016 14:08:13 en MTDD
== END 2016-08-22 14:26 | disposition home or self-care (01) | DRG 340 ==
LOC: ED 10:44 → EROBSV 11:10 → OBSVTOIN 15:16 → ERH 16:25 → 3RSO 17:27
PROVIDERS: ADMIT Student in an Organized Health Care Education/Training Program; ATTEND Family Medicine
PROC: 0DTJ4ZZ Resection of Appendix, Percutaneous Endoscopic Approach (ICD-10-PCS; principal; 2016-08-18 17:30)
DX: K35.2 Acute appendicitis with generalized peritonitis (principal); E87.6 Hypokalemia; E78.00 Pure hypercholesterolemia, unspecified; R19.7 Diarrhea, unspecified